=== PATIENT | male | born 1965 | race Caucasian/White ===

== ENCOUNTER → 2016-07-29 | Outpatient (CLI) | payer OTHER ==
--- NOTE | 2016-07-30 05:56 | REP ---
Clinical: Right lower anterior chest pain status post fall. Technique: Frontal view of the chest with multiple views of the right hemithorax. Findings: Frontal view of the chest is unremarkable and without consolidation/contusion, effusion, or pneumothorax. Mediastinum is normal. Multiple views of the right hemithorax suggests a nondisplaced fracture along the anterior margin of the right ninth rib. Remainder examination appears normal. Impression: Cannot exclude a very subtle nondisplaced fracture involving the anterior margin of the ninth rib. Signed by Rodolfo Davidson MD 07/30/2016 05:47 A
== END ==
LOC: M ADAMS 14:03
PROVIDERS: ATTEND Physician Assistant Medical
DX: S20.211A Contusion of right front wall of thorax, initial encounter (principal); Y92.89 Other specified places as the place of occurrence of the external cause; Y93.89 Activity, other specified; Y99.8 Other external cause status

== ENCOUNTER 2018-05-17 09:08 | Emergency (ER) | payer OTHER ==
[2018-05-17] MEDS: diazePAM 5 MG TAB PO (09:39)
== END 2018-05-17 10:47 | disposition home or self-care (01) ==
LOC: M ED 09:08
DX: S22.42XA Multiple fractures of ribs, left side, initial encounter for closed fracture (principal); M62.830 Muscle spasm of back; W00.0XXA Fall on same level due to ice and snow, initial encounter; Y92.093 Driveway of other non-institutional residence as the place of occurrence of the external cause
CPT/HCPCS: 71101

== ENCOUNTER → 2019-06-12 | Outpatient (REF) | payer OTHER ==
[~2019-06-12] MED LIST: PERC5TAB12 PO; VALI5TAB PO
== END ==
LOC: M LAB REF 12:53
PROVIDERS: ATTEND Physician Assistant Medical
DX: J02.9 Acute pharyngitis, unspecified (principal)

== ENCOUNTER 2023-05-10 09:07 | Day surgery (SDC) | payer OTHER ==
[~2023-05-10] VITALS: Ht 180.3 cm; Wt 92.0 kg
[~2023-05-10 09:07] MED LIST changes: +AMIT10TA7 PO; +ATEN25TA PO; +NS 1,000 ML IV ONE; +SUMA25TA3 PO; +propofoL 200 MG/20 ML VIAL As Ordered ONE
[2023-05-10] MEDS ORDERED: LIDOCAINE 2% 100MG/5ML SDV (FOR ANES.) As Ordered ONE (10:09)
[2023-05-10 11:04] VITALS: BP 144/86; TEMP 98.2; O2SAT 95
== END 2023-05-10 11:08 | disposition home or self-care (01) ==
LOC: M OPP 09:07
PROVIDERS: ATTEND Internal Medicine Gastroenterology
DX: Z12.11 Encounter for screening for malignant neoplasm of colon (principal); Z12.12 Encounter for screening for malignant neoplasm of rectum; D12.0 Benign neoplasm of cecum; D12.3 Benign neoplasm of transverse colon; K64.0 First degree hemorrhoids; K21.9 Gastro-esophageal reflux disease without esophagitis; I10 Essential (primary) hypertension; Z79.899 Other long term (current) drug therapy; Z87.891 Personal history of nicotine dependence

== ENCOUNTER → 2023-08-16 | Outpatient (CLI) | payer OTHER ==
[~2023-08-16] MED LIST changes: -NS 1,000 ML IV ONE; -propofoL 200 MG/20 ML VIAL As Ordered ONE
== END ==
LOC: M RAD 08:49
PROVIDERS: ATTEND Physician Assistant
DX: K74.02 Hepatic fibrosis, advanced fibrosis (principal); K76.0 Fatty (change of) liver, not elsewhere classified

== ENCOUNTER → 2023-08-19 | Outpatient (CLI) | payer OTHER | LOC: M SLEEP 20:00 | PROVIDERS: ATTEND Nurse Practitioner Family | DX: G47.9 Sleep disorder, unspecified (principal); R06.83 Snoring ==

== ENCOUNTER → 2024-05-10 | Outpatient (CLI) | payer OTHER | LOC: M RAD 09:08 | PROVIDERS: ATTEND Physician Assistant | DX: K74.60 Unspecified cirrhosis of liver (principal) ==